=== PATIENT | male | born 2000 | race African-American/Black ===

== ENCOUNTER 2020-12-25 10:37 | Emergency (ER) | payer OTHER ==
[~2020-12-25 10:37] MED LIST: ATARAX25 MG PO; FIORICET1 EACH PO; MEDROL 4MG DOSEP4 MG PO; VENTOLIN HFA IN18 GM INH; VOLTAREN **OUT75 MG PO; ZYRTEC10 MG PO
[2020-12-25 11:17] LABS: BASOPHIL 0.4 % (0-2); EOSINOPHIL 3.8 % (0-5); HCT 43.9 % (42.0-52.0); HGB 15.6 g/dl (13.2-18.0); LYMPHOCYTE 29.2 % (15-48); MCH 31.9 pg (25.0-31.0); MCHC 35.5 g/dL (32.0-36.0); MCV 89.8 fL (78.0-100.0); MONOCYTE 9.3 % (0-12); MPV 9.8 fL (6.0-9.5); NEUTROPHIL 56.5 % (41-80); NRBC 0; PLT 309 K/uL (150-400); RBC 4.89 M/uL (4.70-6.00); RDW 11.2 % (11.5-14.0); WBC 5.3 K/uL (4.0-10.5)
[2020-12-25 11:21] LABS: ALBUMIN 3.8 g/dL (3.4-5.0); BILIRUBIN - TOTAL 0.7 mg/dL (0.2-1.0); BUN/CREAT RATIO (CALC) 9.4 RATIO; CREATININE 1.38 mg/dL (0.67-1.17); GLOBULIN (CALCULATION) 3.3 g/dL; POTASSIUM 4.2 mmol/L (3.5-5.1); TOTAL PROTEIN 7.1 g/dL (6.4-8.2)
[2020-12-25] MEDS ORDERED: PREDNISONE 20MG20 MG PO (13:25)
== END 2020-12-25 13:47 | disposition home or self-care (01) ==
LOC: FER 10:37
PROVIDERS: Internal Medicine
DX: J45.901 Unspecified asthma with (acute) exacerbation (principal); Z20.822 Contact with and (suspected) exposure to COVID-19; F17.200 Nicotine dependence, unspecified, uncomplicated
CPT/HCPCS: 36415; 71045; 80053; 85025; 85379; 93005; J2930; U0002